=== PATIENT | female | born 1980 | race Asian ===

== ENCOUNTER 2017-10-27 22:37 | Emergency (ER) | payer BC, OTHER | END 2017-10-27 23:30 | disposition left against medical advice (07) | LOC: E/R 23:30 | DX: Z53.21 Procedure and treatment not carried out due to patient leaving prior to being seen by health care provider (principal) ==

== ENCOUNTER 2017-10-30 22:06 | Emergency (ER) | payer BC | END 2017-10-30 23:02 | disposition home or self-care (01) | LOC: E/R 22:06 | DX: J20.9 Acute bronchitis, unspecified (principal) | CPT/HCPCS: 99284 ==

== ENCOUNTER 2019-01-03 16:07 | Emergency (ER) | payer BC ==
[2019-01-03] MEDS: ALBUTEROL HFA 8 GM INHALER INH (17:08)
== END 2019-01-03 17:11 | disposition home or self-care (01) ==
LOC: E/R 16:07
DX: O99.512 Diseases of the respiratory system complicating pregnancy, second trimester (principal); J40 Bronchitis, not specified as acute or chronic; Z3A.17 17 weeks gestation of pregnancy
CPT/HCPCS: 99283; 99283-25